=== PATIENT | male | born 1955 | race Caucasian/White ===

== ENCOUNTER → 2016-06-15 | Outpatient (CLI) | payer OTHER ==
--- NOTE | 2016-06-15 12:05 | CT ---
CT Coronary Calcium Score History: Follow-up calcium score evaluation. History of type 2 diabetes (E11.9), hyperlipidemia (E 78 .5), known arteriosclerotic calcification of the coronary arteries (I 25.10). Family history of heart disease including father and brother. The patient is presently on statin medication as well as low-d ose aspirin. History of hypertension. Technique: Prospectively gated noncontrast images through the chest without contrast. Dose reduction techniques were utilized. Findings: Comparison to previous study of December 26, 2013 [place]; 0, LAD; 532, LCx; 411, RCA; 145, PDA; 0, TOTAL; 1088. (Previously: [place]; 0, LAD; 424, LCx; 279, RCA; 102, PDA; 0, TOTAL; 805.) Calcium score according to the Agatston-Janowitz criteria is 1088 which is consistent with the 90th p ercentile for age. This means that 10% of patients of this age group have calcium score higher than this patient. There has been mild interval progression since the prior study. Noncardiac evaluation: Lungs: Visualized portions of the lungs are clear. Mediastinum: Heart size is normal. No pericardial effusion or pericardial thickening is present. Cent ral pulmonary vessels are normal. Aorta: Visualized lower thoracic aorta is normal in caliber. Spine: Hypertrophic calcifications are seen along the anterior and right lateral aspect of mid to low er thoracic spine vertebral body segments compatible with underlying diffuse idiopathic skeletal hype rostosis (DISH). Impression: 1. A calcium score of 1088 places the patient in the 90th percentile rank for age. There has been mil d progression since the prior study. 2. Continue daily aspirin therapy with optimize statin medication 3. Secondary NCEP prevention guidelines. NCEP secondary prevention guidelines include smoking cessati on, blood pressure control, diet modification, lipid management, physical activity, weight management , diabetes management, antiplatelet agents and anticoagulants, and beta blockers as clinically direct ed.
== END ==
LOC: FIMAGING 10:24
PROVIDERS: ATTEND Family Medicine
DX: Z13.6 Encounter for screening for cardiovascular disorders (principal)

== ENCOUNTER → 2016-08-24 | Outpatient (CLI) | payer OTHER ==
[~2016-08-24] MED LIST: IOPAMIDOL (ISOVUE 370) 100 ML BTL IV ONE
== END ==
LOC: FIMAGING 15:48
PROVIDERS: ATTEND Internal Medicine Cardiovascular Disease
DX: I25.10 Atherosclerotic heart disease of native coronary artery without angina pectoris (principal)
CPT/HCPCS: Q9967